=== PATIENT | male | born 1945 | race Caucasian/White ===

== ENCOUNTER 2016-04-18 12:54 | Inpatient (IN) | payer MEDICARE ==
[~2016-04-18] VITALS: Ht 177.8 cm; Wt 104.2 kg
[2016-04-18] MEDS ORDERED: KCL 20MEQ IN D5/NS 1000ML 1,000 ML IV SCH (12:59)
[2016-04-18] MEDS ORDERED: KETOROLAC 30 MG/ML VIAL (J1885) IV SCH (13:00)
[2016-04-18] MEDS ORDERED: LEVALBUTEROL 1.25 MG/0.5 ML CONCENTRATE NEB NEB PRN (13:00)
[2016-04-18] MEDS ORDERED: ACETAMINOPHEN TAB 650MG DOSE (2X325MG) PO PRN (13:00)
[2016-04-18] MEDS ORDERED: zolPIDEM TARTRATE 5 MG TAB PO PRN (13:00)
[2016-04-18] MEDS ORDERED: PERCOCET 5MG/325MG TAB PO PRN (13:00)
[2016-04-18] MEDS ORDERED: BISACODYL 10 MG SUPP PR PRN (13:00)
[2016-04-18] MEDS ORDERED: ONDANSETRON 4MG/2ML VIAL (J2405) IV PRN (13:00)
[2016-04-18] MEDS: LEVALBUTEROL 1.25 MG/0.5 ML CONCENTRATE NEB NEB SCH ×2 (14:00→20:00)
[2016-04-18] MEDS ORDERED: MORPHINE 10 MG/ML 1ML VIAL As Ordered ONE (15:09)
[2016-04-18] MEDS ORDERED: HYDROmorphone HCL 1 MG/ML SYRINGE (J1170) IV PRN (16:15)
[2016-04-18 16:25] VITALS: BP 183/104
[2016-04-18] MEDS ORDERED: NS 1,000 ML IV SCH (16:30)
[2016-04-18] MEDS ORDERED: PROP80CA PO (16:37)
[2016-04-18] MEDS ORDERED: LISI10TA4 PO (16:37)
[2016-04-18] MEDS ORDERED: FLOM5CAP PO (16:37)
[2016-04-18] MEDS ORDERED: ATOR40TA PO (16:37)
[2016-04-18] MEDS ORDERED: NEXI40CA PO (16:37)
[2016-04-18] MEDS ORDERED: PERC10TA17 PO (16:37)
[2016-04-18] MEDS ORDERED: LASI40TA PO (16:37)
[2016-04-18] MEDS: HYDROmorphone HCL 1 MG/ML SYRINGE (J1170) IV PRN ×2 (16:56→20:33)
[2016-04-18] MEDS: ceFAZolin SOD 1 GM in D5W MINI-BAG PLUS 50 ML IV SCH (17:54)
[2016-04-18] MEDS: PERCOCET 5MG/325MG TAB PO PRN ×2 (17:55→23:07)
[2016-04-18 18:22] LABS: INR 0.99
[2016-04-18 18:35] LABS: ALBUMIN 3.1 GM/DL (3.2-5.2); ALBUMIN/GLOBULIN RATIO 0.82 (1.00-1.93); ALKALINE PHOSPHATASE 145 U/L (45-117); ALT/SGPT 16 U/L (12-78); ANION GAP 11 MEQ/L (8-16); AST/SGOT 20 U/L (15-37); BILIRUBIN,TOTAL 0.9 MG/DL (0.2-1.0); BLOOD UREA NITROGEN 17 MG/DL (7-18); CALCIUM LEVEL 7.9 MG/DL (8.8-10.2); CARBON DIOXIDE LEVEL 24 MEQ/L (21-32); CHLORIDE LEVEL 104 MEQ/L (98-107); CHOLESTEROL LEVEL 136 MG/DL (<200); CREATININE FOR GFR 0.84 MG/DL (0.70-1.30); GLOMERULAR FILTRATION RATE > 60.0 (>42); GLUCOSE, FASTING 97 MG/DL (83-110); POTASSIUM SERUM 3.6 MEQ/L (3.5-5.1); SODIUM LEVEL 139 MEQ/L (136-145); TOTAL PROTEIN 6.9 GM/DL (6.4-8.2); TRIGLYCERIDES LEVEL 263 MG/DL (<150)
[2016-04-18 20:00] VITALS: O2SAT 96
--- NOTE | 2016-04-18 20:13 | CR ---
DATE: 04/18/2016 This is a patient from [facility]. CHIEF COMPLAINT: Chest pain. SUMMARY OF PRESENTATION: This is a 71-year-old who presented to [facility] today for a lung biopsy in interventional radiology. He developed chest pain after and was found to have a pneumothorax. Chest tube was placed by Dr. Lawton. He has continued to have left-sided chest pain associated with shortness of breath and has been pleuritic. I was asked to see the patient in consultation. Apparently, also sometime during his presentation he developed sudden onset left-sided weakness, which had resolved by the time I made it to the bedside. He had weakness in his left hand, left forearm, and left shoulder. 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 She noted no facial asymmetry or leg weakness at that time. The entire episode lasted 1-2 minutes at most. The patient has history of atrial fibrillation, for which he is not anticoagulated, and he has not been on aspirin for around a month, as he had a severe case of duodenitis, for which he was hospitalized at [facility]. PAST MEDICAL HISTORY: Notable for: 1. Anxiety. 2. Atrial fibrillation. 3. Autonomic dysfunction. 4. Angina. 5. Cardiovascular disease. 6. Chronic obstructive pulmonary disease (COPD). 7. Depression. 8. Hyperlipidemia. 9. Hypertension. 10. Orthostatic hypotension. 11. Renal stones. 12. Ruptured aortic aneurysm remotely. 13. Stage III chronic kidney disease. 14. Supraventricular tachycardia (SVT). 15. Urinary outflow obstruction. 16. 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 PAST SURGICAL HISTORY: Notable for: 1. Appendectomy. 2. Cardiac stents. 3. Cholecystectomy. 4. Eye surgery. 5. Abdominal aortic aneurysm (AAA) surgery. ALLERGIES: To DEMEROL, which is activating for him. MEDICATIONS: At home are listed as atorvastatin, Nexium, Lasix, lisinopril, Percocet, propranolol, and Flomax. Doses are currently being verified by the pharmacy intern. SOCIAL HISTORY: Patient is and retired. He smoked three packs a day for 48 years but does not smoke currently. Occasionally drinks. His daughter is at bedside. FAMILY HISTORY: Unremarkable due to advanced age. REVIEW OF SYSTEMS: Notable for no headache. No visual changes, although he has impaired vision in his left eye. No neck pain. No cough. He is not short of breath currently, although he does have episodes of shortness of breath during my exam. Abdominal pain. He has had black stools related to his duodenitis, which apparently here heme negative. He says that he had a history of seizures as a child; otherwise unremarkable. PHYSICAL EXAMINATION: He is awake, appropriately interactive, pleasantly conversant. Head is normocephalic. Sinuses are nontender. Left pupil is irregular. Moist mucous membranes. Neck supple. Breathing is symmetrically diminished. Inspiratory to expiratory (I-to-E) is 1:3. No accessory muscle use. He is speaking in sentences. Heart is in a regular rate and rhythm. Pulse is 2+ on the right and 3+ on the left at the radius. Abdomen soft, doughy, nontender. No lower extremity edema. Strength is symmetrical in the upper and lower extremities. Cranial nerves II-XII are grossly intact. He has normal mood and affect. EKG shows the patient to be in a normal sinus rhythm with an old right bundle branch block and nonspecific T-wave abnormalities. There are no labs available for me to review. ASSESSMENT: This is a 71-year-old with pneumothorax status post lung biopsy who developed left-sided weakness, who will be admitted for workup for transient ischemic attack (TIA), continue on monitoring, as well as neurologic checks. PLAN: 1. Neurologic. Suspicion for TIA is high given the fact that the patient has known atrial fibrillation and is currently anticoagulated. MRA/MRA of the brain are ordered, 2D echo, fasting lipid panel, and a neurology consult. Patient would likely benefit from anticoagulation, although it is unclear why he was not anticoagulated in the past. 2. Chest pain. Chest pain is most likely related to his pneumothorax and chest tube placement. Will cycle troponins and monitor on telemetry. 3. Cardiovascular. Patient has atrial fibrillation, known coronary artery disease, hypertension, hyperlipidemia. Will continue his home medications pending finding the actual doses. 4. Patient has chronic kidney disease, stage III. Would benefit from a CT angiogram should that be available; otherwise, we can do a V/Q scan tomorrow. The patient is being biopsied for suspected lung tumor. If he did, in fact, have that, it would give him increased risk of deep vein thrombosis (DVT) and possible pulmonary embolism (PE). 5. The patient has chronic obstructive pulmonary disease (COPD). He is not on home oxygen. He is slightly hypoxic at this point. He has no listed respiratory medications. 6. Patient has anxiety, which his daughter thinks is getting worse. Not be prescribing any medications for insomnia this evening. 7. Patient has healthcare proxy form at home. Will have to get a copy of that from the family as we are able. TERRY
[2016-04-18 20:20] VITALS: BP 158/81
[2016-04-18] MEDS: DOCUSATE SODIUM 100 MG CAP PO SCH (20:34)
[2016-04-18] MEDS: HEPARIN SOD (PORCINE) 5000 UNITS/ML VIAL SC SCH (20:34)
--- NOTE | 2016-04-18 21:06 | REP ---
MRI BRAIN WITHOUT CONTRAST: HISTORY: TIAs. Areas of increased signal intensity on T2-weighted images are present in the periventricular and subcortical white matter and jonathan. This represents small vessel ischemic disease. There is no intraparenchymal hemorrhage, infarct, mass or midline shift. The ventricular system and cortical sulci are dilated consistent with mild volume loss. There is no extracerebral collection. Mucosal thickening is present in the ethmoid, maxillary, sphenoid and left frontal sinuses, and right mastoid air cells. IMPRESSION: 1. Small vessel ischemic disease. 2. Mild volume loss. Signed by Jorge Luis Llanos MD 04/19/2016 08:03 A
[2016-04-18 21:10] LABS: BASO % 0.3 % (0.0-1.0); EOS # 0.2 K/mm3 (0.0-0.50); EOS % 1.6 % (0.0-3.0); LARGE UNSTAINED CELL # 0.2 K/mm3 (0.0-0.4); LARGE UNSTAINED CELL % 1.8 % (0.0-4.0); LYMPH # 1.9 K/mm3 (1.5-4.5); LYMPH % 19.2 % (24.0-44.0); MEAN CORPUSCULAR HEMOGLOBIN 34.8 pg (27.0-33.0); MEAN CORPUSCULAR HGB CONC 34.4 g/dl (32.0-36.5); MEAN CORPUSCULAR VOLUME 101.3 fl (80.0-96.0); MONO # 0.5 K/mm3 (0.0-0.8); MONO % 4.8 % (0.0-5.0); NEUTROPHILS # 7.2 K/mm3 (1.8-7.7); NEUTROPHILS % 72.3 % (36.0-66.0); PLATELET COUNT, AUTOMATED 251 k/mm3 (150-450); RED CELL DISTRIBUTION WIDTH 13.8 % (11.5-14.5)
[2016-04-19] VITALS (11 sets, daily range): BP systolic 139–168; BP diastolic 67–98; O2SAT 93–97
[2016-04-19] MEDS: ceFAZolin SOD 1 GM in D5W MINI-BAG PLUS 50 ML IV SCH ×3 (01:40→17:19)
[2016-04-19] MEDS: HYDROmorphone HCL 1 MG/ML SYRINGE (J1170) IV PRN ×2 (01:40→10:33)
[2016-04-19] MEDS: LEVALBUTEROL 1.25 MG/0.5 ML CONCENTRATE NEB NEB SCH ×4 (02:00→20:00)
[2016-04-19] MEDS: NORCO, ANEXSIA 5/325MG TABLET (HYDROcodone/ACETAMINOPHEN) PO PRN ×3 (02:53→21:29)
[2016-04-19 05:27] LABS: BASO % 0.4 % (0.0-1.0); EOS # 0.2 K/mm3 (0.0-0.50); EOS % 2.1 % (0.0-3.0); LARGE UNSTAINED CELL # 0.2 K/mm3 (0.0-0.4); LARGE UNSTAINED CELL % 2.1 % (0.0-4.0); LYMPH # 1.7 K/mm3 (1.5-4.5); LYMPH % 21.3 % (24.0-44.0); MEAN CORPUSCULAR HEMOGLOBIN 33.3 pg (27.0-33.0); MEAN CORPUSCULAR HGB CONC 32.7 g/dl (32.0-36.5); MEAN CORPUSCULAR VOLUME 101.8 fl (80.0-96.0); MONO # 0.5 K/mm3 (0.0-0.8); NEUTROPHILS # 5.3 K/mm3 (1.8-7.7); NEUTROPHILS % 68.1 % (36.0-66.0); PLATELET COUNT, AUTOMATED 228 k/mm3 (150-450); RED CELL DISTRIBUTION WIDTH 13.9 % (11.5-14.5); WHITE BLOOD COUNT 7.8 K/mm3 (4.0-10.0)
[2016-04-19 05:44] LABS: ANION GAP 6 MEQ/L (8-16); BLOOD UREA NITROGEN 15 MG/DL (7-18); CALCIUM LEVEL 8.6 MG/DL (8.8-10.2); CARBON DIOXIDE LEVEL 29 MEQ/L (21-32); CHLORIDE LEVEL 104 MEQ/L (98-107); CHOLESTEROL LEVEL 122 MG/DL (<200); CREATININE FOR GFR 1.01 MG/DL (0.70-1.30); GLOMERULAR FILTRATION RATE > 60.0 (>42); GLUCOSE, FASTING 111 MG/DL (83-110); POTASSIUM SERUM 3.6 MEQ/L (3.5-5.1); SODIUM LEVEL 139 MEQ/L (136-145); TRIGLYCERIDES LEVEL 238 MG/DL (<150)
[2016-04-19 05:58] LABS: ABG BASE EXCESS 0.3 (-2.0-2.0); ABG HCO3 24.8 MEQ/L (22.0-26.0); ABG PARTIAL PRESSURE CO2 39.5 mmHg (35.0-45.0); ABG PARTIAL PRESSURE O2 71.9 mmHg (75.0-100.0); ABG STANDARD HCO3 24.7 MEQ/L (22.0-26.0); ABG pH (ARTERIAL) 7.416 UNITS (7.350-7.450)
--- NOTE | 2016-04-19 07:46 | ECHO ---
DATE OF PROCEDURE: 04/18/2016 REFERRING PHYSICIAN: Dr. Emiliano Barrera. INDICATION: TIA. The patient measures 178 cm and weighs 106 kg. DIMENSIONS: IVS - 0.9 LV - 5.9 LVPW - 0.9 LA - 4.0 Aorta 3.7 FINDINGS: Study is somewhat limited on account of the patient's size and presence of left-sided chest tube. Left ventricle is borderline dilated but is overall normally contractile. I estimate EF around 60%. Due to limited visualization, subtle wall motion abnormalities cannot be ruled out. Left atrium is at least mildly enlarged. Right-sided heart chambers were poorly seen but grossly appear normal. There is mild aortic sclerosis but mobility of the valve is preserved. There is thickening of arterior mitral leaflet but mobility is preserved. Tricuspid and pulmonic valves were not well seen. No pericardial effusion is noted. Inferior vena cava is normal size aortic root is normal. Aortic arch and abdominal aorta were not visualized. Doppler interrogation reveals no aortic stenosis or insufficiency. There is also no significant mitral stenosis or insufficiency. Evaluation of right-sided valves was poor due to limited visualization. Mitral inflow pattern and tissue Doppler imaging of mitral annulus reveal grade 1 diastolic dysfunction. CONCLUSION: 1. Study is of fair technical quality. 2. Borderline dilated left ventricle with overall preserved systolic function and grade 1 diastolic dysfunction. 3. No hemodynamically significant mitral and aortic valve disease. 4. Right-sided chambers overall were poorly seen. 5. Normal central venous pressure. COMMENT: SBE prophylaxis is not recommended. MTDD
[2016-04-19] MEDS: MOM 30ML SUSPENSION UDC PO SCH (08:25)
[2016-04-19] MEDS: HEPARIN SOD (PORCINE) 5000 UNITS/ML VIAL SC SCH (08:25)
[2016-04-19] MEDS: DOCUSATE SODIUM 100 MG CAP PO SCH ×2 (08:25→21:28)
[2016-04-19] MEDS: ASPIRIN 81 MG ENTERIC TAB PO SCH (08:25)
[2016-04-19] MEDS: PANTOPRAZOLE 40MG TAB (PROTONIX) PO SCH (08:26)
[2016-04-19] MEDS: PANTOPRAZOLE 40MG INJ (PROTONIX) (C9113) IV SCH (08:26)
[2016-04-19] MEDS: PERCOCET 5MG/325MG TAB PO PRN ×3 (08:27→17:20)
[2016-04-19] MEDS ORDERED: POTASSIUM CHLORIDE 10 MEQ SR TABLET PO ONE (08:45)
[2016-04-19] MEDS ORDERED: ENOXAPARIN 100MG/1ML SYRINGE (J1650) SC SCH (09:00)
--- NOTE | 2016-04-19 09:04 | REP ---
Duplex carotid sonography: History: TIA. Findings: Antegrade flow is observed in both vertebral arteries. Right carotid: The right common carotid artery shows mild diffuse intimal thickening. There is mild mixed plaquing circumferentially in the bulb, proximal ICA and proximal ECA. Color flow and spectral Doppler interrogation are unremarkable on the right. Velocity chart right carotid: CCA PSV 69 cm/s ICA PSV 101 ANNEMARIE 26 ECA PSV 102 ICA/CCA ratio normal 1.5. Impression: 16-49% category narrowing in the right ICA by Doppler velocity criteria. Probably near the upper end of this range. Left carotid: The left common carotid artery shows diffuse intimal thickening and some mild plaquing. There is mixed plaquing in the bulb, proximal ICA and proximal ECA. Color flow and spectral Doppler interrogation show mildly elevated systolic velocity in the left ICA. Velocity chart left carotid: CCA PSV 70 cm/s ICA PSV 141 ANNEMARIE 53 ECA PSV 55 ICA/CCA ratio elevated 2.0. Impression: 50-79% category narrowing in the left ICA by Doppler velocity criteria. Signed by Mumtaz Loyola MD 04/19/2016 02:46 P
[2016-04-19] MEDS: PROPRANOLOL 80 MG LA CAP PO SCH (09:54)
[2016-04-19] MEDS: LISINOPRIL 10 MG TAB PO SCH (09:55)
--- NOTE | 2016-04-19 10:13 | REP ---
CHEST, TWO VIEWS: Two views of the chest are performed. Comparison made with prior study of 04/18/2016. There is again a single left chest tube with the side port overlying the left apical region. There is mild biapical pleural thickening bilaterally. There is patchy parenchymal opacity in the left lung base which is unchanged. Cardiomediastinal silhouette is unchanged. There is no pneumothorax. IMPRESSION: Stable exam. Signed by Maury Stoner MD 04/19/2016 05:20 P
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
--- NOTE | 2016-04-19 11:22 | ECGEPIP ---
Stationary ECG Study [facility] Test Date: 2016-04-19 Pat Name: GARIMA WIGGINS Department: Room: - Gender: M Venereal Disease Control Head: : 1945 Requested By: EMILIANO Bourgeois Order Number: [id number] Reading MD: Emiliano Barrera Measurements Intervals [place] Rate: 84 P: 31 GA: 268 QRS: 73 QRSD: 141 T: 30 QT: 417 QTc: 496 Interpretive Statements SINUS RHYTHM WITH FIRST DEGREE AV BLOCK WITH OCCASIONAL VENTRICULAR PREMATURE COMPLEXES Prolonged QTc Right bundle branch block Nonspecific T wave abnormality Compared to prior tracing of 04-18-16 Electronically Signed On 04-19-2016 11:22:39 EST by Emiliano Barrera
--- NOTE | 2016-04-19 12:29 | REP ---
MRA CAROTIDS WITHOUT CONTRAST: HISTORY: TIAs. Unenhanced 2D [id number] MR angiography was performed at the level of the carotid bifurcations. The examination is very limited secondary to motion. There is at least moderate stenosis of 55% of the right internal carotid artery at its origin. There is at least __moderate ___ stenosis of 50% of the right external carotid artery at its origin. There is at least moderate stenosis of 60% of the left internal carotid artery at its origin. There is at least moderate stenosis of 35% of the left external carotid artery at its origin. The vertebral arteries are patent. The left vertebral artery is dominant. IMPRESSION: Limited study demonstrating at least moderate stenosis of 55% of the right internal carotid artery at its origin and moderate stenosis of 60% of the left internal carotid artery at its origin. Signed by Jorge Luis Llanos MD 04/19/2016 12:32 P
--- NOTE | 2016-04-19 12:29 | RO ---
DATE OF PROCEDURE: 04/18/2016 PREPROCEDURE DIAGNOSIS: Left pneumothorax expanding. POSTPROCEDURE DIAGNOSIS: Left pneumothorax expanding. PROCEDURE: Insertion of left anterior chest tube. SURGEON: Dr. Jean Claude Lawton LEAN LEADER: ANESTHESIA: DESCRIPTION OF PROCEDURE: Under satisfactory moderate sedation, with 4 mg of Versed, the patient was prepped and draped in the usual sterile fashion. Blood pressure remained constant in the 150 to 160 systolic range. The incision was made and tunnel was created in the chest over the second rib into the first intercostal space. A #20 chest tube was placed without difficulty and was secured to the chest wall with a #2 Tevdek suture. The chest tube was connected to the Pleur-evac. The patient tolerated the procedure well and a chest x-ray is pending.
--- NOTE | 2016-04-19 13:42 | REP ---
V/Q SCAN: Following the intravenous administration of 5.4 millicuries technetium 99m tagged MAA and the inhalation of 1.0 millicuries technetium 99m DTPA aerosol, multiple images of the lungs are obtained in various projections. There is central deposition of radiotracer in the airways on the ventilation portion of the scan with relatively poor ventilation more peripherally. This limits the study. There is a prominent cardiomediastinal silhouette. A few nonspecific subsegmental perfusion defects are seen in the right upper lobe with more extensive ventilation defects in this region. Perfusion defects are seen in both costophrenic sulci posteriorly with much larger ventilation defects. IMPRESSION: Intermediate probability of pulmonary embolism. Signed by Maury Stoner MD 04/19/2016 05:23 P
--- NOTE | 2016-04-19 14:14 | IPN ---
DATE: 04/19/2016 Mr. Marx has had an uneventful 24 hours. There has been no repeat of the left sided weakness. He has no air leak in his chest tube and his pain is being fairly well controlled with oral pain medications. His vital signs show a T-max of 97.5 with a heart rate that ranges between 82 and 106 in atrial fibrillation, and respiratory rate of 17-20 without the use of accessory muscles, who is 95-94% saturated on 2 liters nasal cannula. His blood pressure is ranging between 150/70 to 168/88. His intake and output the past 24 hours has been recorded as 660 in and 500 out for a positivity of 160 mL. He has put out nothing from the chest tube and there is no air leak as noted above. Weight today is 103.9 kg compared to 106 kg yesterday. PHYSICAL EXAMINATION: LUNGS: Show equal breath sounds on either side. Percussion notes are full to the diaphragm. There are no wheezes, rhonchi or ales. CARDIAC: Exam is without murmurs, clicks, gallops or rubs. I cannot feel his PMI. S1 and S2 are normal. ABDOMEN: Soft, nontender. Bowel sounds are positive. There is no hepatomegaly. No CVA tenderness. EXTREMITIES: Show no pretibial edema. No calf tenderness. No differential swelling of the upper extremities. SKIN: Warm, dry and perfused without cyanosis or mottling including that of the nail beds and knees. NECK: Supple. There is no jugular venous distention (JVD). No subcutaneous emphysema. Trachea is midline. MOUTH: Shows his mucous membranes to be pink and moist. Lips and commissures without lesions. There is no thrush. EYES: Show is pupils to be equal and reactive. Extraocular motors intact. Sclera nonicteric. NEURO: Shows II through XII intact along with gross motor and gross sensation intact. Gait is not tested. PSYCHIATRIC: Shows him to be awake and alert, oriented times three with appropriate mood and affect, and conversational. His white count today is 7.8 with a hemoglobin and hematocrit of 10.0 and 30.6, essentially unchanged from yesterday with a platelet count of 228. Differential shows 66% neutrophils, 21% lymphocytes, 6% monocytes. There are no immature forms. No toxic granulations. His electrolytes are normal with a BUN and creatinine of 15 and 1.0. Glucose is 111 with a calcium of 8.6 and a corresponding albumin of 3.1 yesterday. All his troponins are negative. Chest x-ray shows his lung fully expanded to the chest wall. There is no pneumothorax and there is no subcutaneous emphysema. Chest tube is in good place. Brain MRI does not show any acute changes. Yesterday it was done without contrast. His carotid studies done this morning shows moderate stenosis, 55% of the right internal carotid artery and also 60% left carotid artery. A ventilation perfusion scan was undertaken which shows intermediate probability of pulmonary embolism. IMPRESSION: 1. Iatrogenic pneumothorax. 2. Probable clinical transient ischemic attack (TIA), no evidence of permanent structural damage. 3. Atrial fibrillation. 4. Coronary artery disease. 5. Chronic obstructive pulmonary disease (COPD). 6. Peripheral vascular disease. 7. Hyperlipidemia. 8. Hyperlipidemia. 9. Hypertension. 10. History of renal stones. 11. Benign prostatic hypertrophy (BPH). PLAN AND DISCUSSION: I will discontinue his chest tube suction today. If all goes well and his lung remains expanded to the chest wall, I will discontinue the chest tube tomorrow. I have again noted that I think that he should be fully anticoagulated.
[2016-04-19] MEDS ORDERED: ELIQ5TAB PO (17:40)
--- NOTE | 2016-04-19 18:52 | IPNPDOC ---
Subjective Date Seen The patient was seen on 04/19/16. Subjective Chief Complaint/HPI The patient is a 71-year-old male admitted with a reason for visit of Pneumothorax. Events since last encounter reported left sided chest pain, denied sob, abd pain, no acute events overnight. poor historian General: Denies: Chills, Fatigue Constitutional: Denies: Chills, Fever Eyes: Denies: Pain, Vision change ENT: Denies: Ear Pain, Head Aches Skin: Denies: Lesions, Rash Pulmonary: Reports: Cough, Denies: Dyspnea Cardiovascular: Reports: Chest Pain, Denies: Palpitations Gastrointestinal: Denies: Abdominal Pain, Nausea, Vomiting Genitourinary: Denies: Dysuria Objective Physical Examination General Exam: Positive: Alert, Cooperative, Negative: No Acute Distress Eye Exam: Positive: PERRLA ENT Exam: Positive: Atraumatic, Mucous membr. moist/pink Neck Exam: Positive: Supple Chest Exam: Positive: Clear to auscultation, Normal air movement Heart Exam: Positive: Normal S1, Normal S2, Rate Normal Abdomen Exam: Positive: Normal bowel sounds, Soft, Negative: Tenderness Extremity Exam: Negative: Clubbing, Cyanosis, Edema Assessment /Plan Problems (1) Chest pain Status: Acute Problem Text: likley pleuritic due to biopsy and chest tube tele, enzymes neg, ekg VQ scan intermediate on AC (2) Lung mass Status: Acute Problem Text: s/p biopsy, f/u path (3) COPD (chronic obstructive pulmonary disease) Status: Chronic Problem Text: stable c/w med (4) CAD (coronary artery disease) Status: Chronic Problem Text: asa, statin , acei, bb tele cex3 neg (5) TIA (transient ischemic attack) Status: Acute Problem Text: tele tte, MRI/MRA, carotid asa, statin, eliquis foe a fib (6) HTN (hypertension) Status: Chronic Problem Text: acei and BB monitor BP (7) HLD (hyperlipidemia) Status: Chronic Problem Text: statin (8) Afib Status: Chronic Problem Text: given TIA , D/w neuro/ PMD/ family, need AC, given poor compliance and difficult blood draw will attempt Eliquis PFS for possible prior authorization tele (9) BPH (benign prostatic hyperplasia) Status: Chronic Problem Text: c/w med (10) Pneumothorax Status: Acute Problem Text: s/p chest tube, manage as per Dr Lawton (11) CKD (chronic kidney disease) Status: Chronic Response to Treatment: Stable Plan/VTE VTE Prophylaxis Ordered?: Yes (eliquis) Disposition PT, chest tube removal, PFS for eliquis VS, I&O, 24H, Fishbone Vital Signs/I&O Vital Signs Date Time Temp Pulse Resp B/P Pulse Ox O2 Delivery O2 Flow Rate FiO2 04/19/16 17:50 17 04/19/16 16:00 97.0 88 140/88 96 Nasal Cannula 2.0 04/19/16 02:53 95 I&O- Last 24 Hours up to 6 AM 04/19/16 06:00 Intake Total 950 ml Output Total 510 ml Balance 440 ml Laboratory Data 24H LABS Laboratory Tests 2 04/18/16 20:49: B-Type Natriuretic Peptide 155H, White Blood Count 10.0, Red Blood Count 3.11L, Hemoglobin 10.8L, Hematocrit 31.5L, Mean Corpuscular Volume 101.3H, Mean Corpuscular Hemoglobin 34.8H, Mean Corpuscular Hemoglobin Concent 34.4, Red Cell Distribution Width 13.8, Platelet Count 251, Neutrophils (%) (Auto) 72.3H, Lymphocytes (%) (Auto) 19.2L, Monocytes (%) (Auto) 4.8, Eosinophils (%) (Auto) 1.6, Basophils (%) (Auto) 0.3, Neutrophils # (Auto) 7.2, Lymphocytes # (Auto) 1.9, Monocytes # (Auto) 0.5, Eosinophils # (Auto) 0.2, Basophils # (Auto) 0.0, Creatine Kinase MB 1.4, Creatine Kinase MB Relative Index 2.00, Large Unclassified Cells # 0.2, Large Unclassified Cells % 1.8, Total Creatine Kinase 70, Troponin I < 0.02 04/19/16 05:07: White Blood Count 7.8, Red Blood Count 3.01L, Hemoglobin 10.0L, Hematocrit 30.6L , Mean Corpuscular Volume 101.8H, Mean Corpuscular Hemoglobin 33.3H, Mean Corpuscular Hemoglobin Concent 32.7, Red Cell Distribution Width 13.9, Platelet Count 228, Neutrophils (%) (Auto) 68.1H, Lymphocytes (%) (Auto) 21.3L, Monocytes (%) (Auto) 6.0H, Eosinophils (%) (Auto) 2.1, Basophils (%) (Auto) 0.4 , Neutrophils # (Auto) 5.3, Lymphocytes # (Auto) 1.7, Monocytes # (Auto) 0.5, Eosinophils # (Auto) 0.2, Basophils # (Auto) 0.0, Creatine Kinase MB 1.1, Creatine Kinase MB Relative Index 1.64, Large Unclassified Cells # 0.2, Large Unclassified Cells % 2.1, Total Creatine Kinase 67, Troponin I < 0.02, Anion Gap 6L, Calcium Level 8.6L, Triglycerides Level 238H, Cholesterol Level 122, HDL Cholesterol 27L, LDL Cholesterol 47.4, Cholesterol/HDL Ratio 4.518, Glomerular Filtration Rate > 60.0, Non-HDL Cholesterol (LDL + VLDL) 95 04/19/16 05:48: Arterial Blood pH 7.416, Arterial Blood Partial Pressure CO2 39.5, Arterial Blood Partial Pressure O2 71.9L, Arterial Blood Total CO2 26.0, Arterial Blood HCO3 24.8, Arterial Blood Base Excess 0.3, Arterial Blood Oxygen Saturation 93.9L, Blood Gas Bicarbonate Standard 24.7 CBC/BMP Laboratory Tests 04/18/16 20:49 Red Blood Count 3.11 L, Mean Corpuscular Volume 101.3 H, Mean Corpuscular Hemoglobin 34.8 H, Mean Corpuscular Hemoglobin Concent 34.4, Red Cell Distribution Width 13.8, Neutrophils (%) (Auto) 72.3 H, Lymphocytes (%) (Auto) 19.2 L, Monocytes (%) (Auto) 4.8, Eosinophils (%) (Auto) 1.6, Basophils (%) ( Auto) 0.3, Neutrophils # (Auto) 7.2, Lymphocytes # (Auto) 1.9, Monocytes # (Auto ) 0.5, Eosinophils # (Auto) 0.2, Basophils # (Auto) 0.0 04/19/16 05:07 Red Blood Count 3.01 L, Mean Corpuscular Volume 101.8 H, Mean Corpuscular Hemoglobin 33.3 H, Mean Corpuscular Hemoglobin Concent 32.7, Red Cell Distribution Width 13.9, Neutrophils (%) (Auto) 68.1 H, Lymphocytes (%) (Auto) 21.3 L, Monocytes (%) (Auto) 6.0 H, Eosinophils (%) (Auto) 2.1, Basophils (%) ( Auto) 0.4, Neutrophils # (Auto) 5.3, Lymphocytes # (Auto) 1.7, Monocytes # (Auto ) 0.5, Eosinophils # (Auto) 0.2, Basophils # (Auto) 0.0 ISAIAS GAMBOA MD Apr 19, 2016 18:51
[2016-04-19] MEDS: ATORVASTATIN 20 MG TAB PO SCH (21:28)
[2016-04-19] MEDS: TAMSULOSIN 0.4 MG CAP PO SCH (21:28)
[2016-04-20] VITALS (14 sets, daily range): BP systolic 128–186; BP diastolic 62–90; O2SAT 83–95
[2016-04-20] MEDS: ceFAZolin SOD 1 GM in D5W MINI-BAG PLUS 50 ML IV SCH ×3 (01:06→10:00)
[2016-04-20] MEDS: LEVALBUTEROL 1.25 MG/0.5 ML CONCENTRATE NEB NEB SCH ×4 (01:48→21:10)
[2016-04-20 05:40] LABS: ANION GAP 7 MEQ/L (8-16); BLOOD UREA NITROGEN 15 MG/DL (7-18); CALCIUM LEVEL 8.3 MG/DL (8.8-10.2); CARBON DIOXIDE LEVEL 27 MEQ/L (21-32); CHLORIDE LEVEL 105 MEQ/L (98-107); CREATININE FOR GFR 0.93 MG/DL (0.70-1.30); GLOMERULAR FILTRATION RATE > 60.0 (>42); GLUCOSE, FASTING 119 MG/DL (83-110); MAGNESIUM LEVEL 2.5 MG/DL (1.8-2.4); POTASSIUM SERUM 4.4 MEQ/L (3.5-5.1); SODIUM LEVEL 139 MEQ/L (136-145)
[2016-04-20 05:48] LABS: INR 0.98
[2016-04-20 05:51] LABS: BASO % 0.4 % (0.0-1.0); EOS # 0.1 K/mm3 (0.0-0.50); EOS % 1.9 % (0.0-3.0); LARGE UNSTAINED CELL # 0.2 K/mm3 (0.0-0.4); LARGE UNSTAINED CELL % 2.1 % (0.0-4.0); LYMPH # 1.4 K/mm3 (1.5-4.5); LYMPH % 19.9 % (24.0-44.0); MEAN CORPUSCULAR HEMOGLOBIN 34.3 pg (27.0-33.0); MEAN CORPUSCULAR HGB CONC 33.5 g/dl (32.0-36.5); MEAN CORPUSCULAR VOLUME 102.3 fl (80.0-96.0); MONO # 0.4 K/mm3 (0.0-0.8); MONO % 5.8 % (0.0-5.0); NEUTROPHILS # 4.9 K/mm3 (1.8-7.7); PLATELET COUNT, AUTOMATED 208 k/mm3 (150-450); RED CELL DISTRIBUTION WIDTH 13.8 % (11.5-14.5)
--- NOTE | 2016-04-20 08:12 | CR ---
DATE OF CONSULTATION: 04/19/2016 REASON FOR CONSULTATION: Is possible transient ischemic attack (TIA). HISTORY OF PRESENTING ILLNESS: Patient is a 71-year-old, right-handed male with past medical history significant for history of chronic obstructive pulmonary disease (COPD), history of myocardial infarction, hypertension, hyperlipidemia, and atrial fibrillation. The patient was having an elective procedure due to a persistent lung nodule and underwent a biopsy that was complicated by pneumothorax and placement of chest tube. The patient suddenly developed left upper extremity weakness. He is unsure of any leg involvement as he did not even think to try to move his leg. The symptoms lasted approximately 1 minute and then resolved spontaneously on their own. Denied any change in speech, facial weakness, dysarthria or numbness throughout the body. The patient states he is at his baseline state right now. He has some mild chest discomfort near his chest tube site. PAST MEDICAL HISTORY: 1. Atrial fibrillation. 2. Hypertension. 3. Hyperlipidemia. 4. Gastroesophageal reflux disease. 5. COPD. 6. Myocardial infarction 2012. PAST SURGICAL HISTORY: 1. Cataract surgery. 2. Cholecystectomy. 3. Appendectomy. 4. 4 to 5 cardiac stents. FAMILY HISTORY: Noncontributory. SOCIAL HISTORY: The patient quit tobacco 8 years ago. Quit alcohol 10 years ago. Does not use any illicit drugs. ALLERGIES: MEPERIDINE, MORPHINE. MEDICATIONS: - heparin 5000 subcutaneous every 12 hour - cephazolin 1 gram by mouth every 8 hour - Dilaudid as needed - [place] as needed - Zofran as needed - Percocet as needed - Ambien 5 mg by mouth nightly as needed The patient quit aspirin 2 weeks ago due to possible ulcer in the intestines. REVIEW OF SYSTEMS: 14-point review of systems obtained and is negative except as per HPI. PHYSICAL EXAMINATION: Blood pressure 183/104, pulse rate 89, respiratory rate is 20, oxygenation 95% on 2 liters nasal cannula, 97.9 degrees Fahrenheit. The patient is alert, oriented to person, place and time. Speech, language, comprehension and repetition are intact. Pupils are 3 mm round, reactive to light. Extraocular movements are intact in all directions. Sensation V1, V2-V3 is intact to light touch. No facial asymmetry on activation. Palate elevates symmetrically. Tongue is midline. No weakness of sternocleidomastoids bilaterally. No pronator drift. Strength is 5/5, including bilateral deltoids, biceps, triceps, handgrip, iliopsoas, anterior tibialis. Deep tendon reflexes are 2s throughout. Babinski signs are negative. Coordination: Normal [id number] without any signs of ataxia or dysmetria. No pronator drift. Sensory is intact to light touch in all four extremities. ASSESSMENT: Probable transient ischemic attack with transient left upper extremity hemiparesis in setting of the patient being off of anticoagulant, history of atrial fibrillation and aspirin last being used 2 weeks ago. PLAN: Obtain MRI brain, MR angiogram of the head, carotid ultrasound. Continue telemetry monitoring. Echocardiogram. Resume anticoagulation and aspirin if medically safe considering patient recently underwent chest tube placement. The patient can be followed up in the [facility] Neurology office a few weeks upon discharge.
[2016-04-20] MEDS ORDERED: PREVNAR 13 VACCINE SYRINGE (CPT CODE:90670) IM ONE (09:00)
[2016-04-20] MEDS: MOM 30ML SUSPENSION UDC PO SCH (09:08)
[2016-04-20] MEDS: LISINOPRIL 10 MG TAB PO SCH (09:09)
[2016-04-20] MEDS: ASPIRIN 81 MG ENTERIC TAB PO SCH (09:09)
[2016-04-20] MEDS: DOCUSATE SODIUM 100 MG CAP PO SCH ×2 (09:09→20:34)
[2016-04-20] MEDS: APIXABAN 5 MG TAB (ELIQUIS) PO SCH ×2 (09:09→20:33)
[2016-04-20] MEDS: PROPRANOLOL 80 MG LA CAP PO SCH (09:09)
[2016-04-20] MEDS: PERCOCET 5MG/325MG TAB PO PRN ×2 (09:10→23:38)
[2016-04-20] MEDS: PANTOPRAZOLE 40MG INJ (PROTONIX) (C9113) IV SCH (09:10)
--- NOTE | 2016-04-20 09:18 | REP ---
TWO-VIEW CHEST: Two views of the chest are performed and compared to a prior study of 04/19/2016. Left chest tube remains in place, unchanged on position. There is no pneumothorax. There is again elevation of the right hemidiaphragm. Biapical pleural thickening is again noted. Interstitial opacities bilaterally are stable. There is again opacity in the posterior costophrenic sulci unchanged. The cardiomediastinal silhouette is unchanged. IMPRESSION: Stable exam. Signed by Maury Stoner MD 04/20/2016 03:52 P
[2016-04-20] MEDS ORDERED: MIRALAX *UNIT DOSE* 17GM PACKET PO ONE ×2 (11:15→14:45)
--- NOTE | 2016-04-20 14:30 | IPN ---
DATE: 04/20/2016 Mr. Marx again has not had any recurrence of his left-sided weakness. He is breathing well. His chest tube has no air leak and his lung is fully expanded to the chest wall on his chest x-ray. His vital signs show a T-max of 96.8 with a heart rate that ranges between 80 and 86 in atrial fibrillation with a respiratory rate of 18 to 20 without the use of accessory muscles, who is 92% saturated in room air and whose blood pressures range between 186/90 to 176/62. His intake and output over the past 24 hours has been recorded as 6090 in and 1135 out for a positivity of 555 mL. He weighed 140 kilograms today compared to a 103.9 kilograms yesterday. He has put out 10 mL out of the chest tube and as noted above, there is no air leak. On physical examination his lungs show equal breath sounds on either side. Percussion note is full to the diaphragm. Cardiac exam is without murmurs, clicks, gallops or rubs. I cannot feel his point of maximum impulse (PMI). S1 and S2 are normal. Abdomen is soft and nontender. Bowel sounds are positive. There is no hepatomegaly. No CVA tenderness. Extremities show no pretibial edema with no calf tenderness. No differential swelling of the upper extremities. Skin is warm, dry and perfused without cyanosis or mottling including that of the nail beds and knees. Neck is supple. There is no jugular venous distention. No subcutaneous emphysema. Trachea is midline. Mouth shows his mucous membranes to be pink and moist. Lips and commissures are without lesions. There is no thrush. Eyes show his pupils to be equal and reactive. Extraocular movements intact. Sclerae nonicteric. Neurologic shows II-XII intact along with gross motor and gross sensation intact. Gait is not tested. Psychiatric showed him to be awake, alert and oriented times three with appropriate and affect and conversational. His white count today is 7.0 with a hemoglobin and hematocrit of 10.9 and 32.5 improved over 10.0 and 30.6 yesterday. Platelet count is 208 and stable and differential shows 70% neutrophils 90% lymphocytes, 5% monocytes. There are no immature forms or toxic granulations. His electrolytes are normal with a BUN and creatinine of 15 and 0.93 and a calcium of 8.3 and a glucose of 119. Magnesium is 2.5. There are no blood gases on him today. His PT/INR are 13.1 and 0.98. His chest x-ray shows his lungs fully expanded to the chest wall. There is no subcutaneous emphysema. Lateral chest x-ray shows no infiltrates. There may be a small pleural effusion posteriorly in the left costophrenic angle, although that is really unclear. He is currently on Eliquis for his anticoagulation. IMPRESSION: 1. Iatrogenic pneumothorax. 2. Probable clinical transient ischemic attack. No evidence of permanent structural damage. 3. Atrial fibrillation. 4. Coronary artery disease. 5. COPD. 6. Peripheral vascular disease. 7. Hyperlipidemia. 8. Hypertension. 9. History of renal stones. 10. Benign prostatic hypertrophy. PLAN AND DISCUSSION: I will remove his chest tube today. 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 I plan to send to him home tomorrow. Will need to discuss his next therapeutic options.
[2016-04-20] MEDS: SENOKOT S TAB PO SCH ×2 (14:34→20:34)
[2016-04-20] MEDS ORDERED: WARFARIN SOD 5 MG TAB PO SCH (17:00)
[2016-04-20] MEDS: ATORVASTATIN 20 MG TAB PO SCH (20:32)
[2016-04-20] MEDS: TAMSULOSIN 0.4 MG CAP PO SCH (20:33)
--- NOTE | 2016-04-20 20:46 | IPNPDOC ---
Subjective Date Seen The patient was seen on 04/20/16. Subjective Chief Complaint/HPI The patient is a 71-year-old male admitted with a reason for visit of Pneumothorax. Events since last encounter No acute events overnight, reported cp resolving, Denied SOB/ABD pain/v/n/f/c Objective Physical Examination General Exam: Positive: Alert, Cooperative, Negative: No Acute Distress Eye Exam: Positive: PERRLA ENT Exam: Positive: Atraumatic, Mucous membr. moist/pink Neck Exam: Positive: Supple Chest Exam: Positive: Clear to auscultation, Normal air movement, Other (chest tube) Heart Exam: Positive: Normal S1, Normal S2, Rate Normal Abdomen Exam: Positive: Normal bowel sounds, Soft, Negative: Tenderness Extremity Exam: Negative: Clubbing, Cyanosis, Edema Assessment /Plan Problems (1) Chest pain Status: Acute Problem Text: likley pleuritic due to biopsy and chest tube tele, enzymes neg, ekg VQ scan intermediate on AC (2) Lung mass Status: Acute Problem Text: biopsy showed squamous cell lung cancer f/u Dr Lawton rec, outpatient PET cancer navigation outpatient onco (3) COPD (chronic obstructive pulmonary disease) Status: Chronic Problem Text: stable c/w med (4) CAD (coronary artery disease) Status: Chronic Problem Text: asa, statin , acei, bb tele cex3 neg (5) TIA (transient ischemic attack) Status: Acute Problem Text: tele tte, MRI/MRA, carotid asa, statin, eliquis for a fib (6) HTN (hypertension) Status: Chronic Problem Text: acei and BB monitor BP (7) HLD (hyperlipidemia) Status: Chronic Problem Text: statin (8) Afib Status: Chronic Problem Text: given TIA , D/w neuro/ PMD/ family, need AC, given poor compliance and difficult blood draw will attempt Eliquis PFS for possible prior authorization tele (9) BPH (benign prostatic hyperplasia) Status: Chronic Problem Text: c/w med (10) Pneumothorax Status: Acute Problem Text: s/p chest tube, manage as per Dr Lawton removed chest tube f/u Dr Lawton monitor overnight (11) CKD (chronic kidney disease) Status: Chronic Response to Treatment: Stable (12) Squamous cell lung cancer Status: Acute Problem Text: see above Plan/VTE VTE Prophylaxis Ordered?: Yes (eliquis) Disposition PT, monitor improvement, likely DC tomorrow VS, I&O, [facility] Vital Signs/I&O Vital Signs Date Time Temp Pulse Resp B/P Pulse Ox O2 Delivery O2 Flow Rate FiO2 04/20/16 19:45 96.3 83 20 147/68 93 Nasal Cannula 2.0 04/19/16 02:53 95 I&O- Last 24 Hours up to 6 AM 04/20/16 06:00 Intake Total 1520 ml Output Total 1325 ml Balance 195 ml Laboratory Data 24H LABS Laboratory Tests 2 04/20/16 05:13: Anion Gap 7L, White Blood Count 7.0, Red Blood Count 3.18L, Hemoglobin 10.9L, Hematocrit 32.5L, Mean Corpuscular Volume 102.3H, Mean Corpuscular Hemoglobin 34.3H, Mean Corpuscular Hemoglobin Concent 33.5, Red Cell Distribution Width 13.8, Platelet Count 208, Neutrophils (%) (Auto) 70.0H, Lymphocytes (%) (Auto) 19.9L, Monocytes (%) (Auto) 5.8H, Eosinophils (%) (Auto) 1.9, Basophils (%) ( Auto) 0.4, Neutrophils # (Auto) 4.9, Lymphocytes # (Auto) 1.4L, Monocytes # ( Auto) 0.4, Eosinophils # (Auto) 0.1, Basophils # (Auto) 0.0, Blood Urea Nitrogen 15, Creatinine 0.93, Sodium Level 139, Potassium Level 4.4#, Chloride Level 105, Carbon Dioxide Level 27, Calcium Level 8.3L, Glomerular Filtration Rate > 60.0, Large Unclassified Cells # 0.2, Large Unclassified Cells % 2.1, Magnesium Level 2.5H, Prothromb Time International Ratio 0.98, Prothrombin Time 13.1 CBC/BMP Laboratory Tests 04/20/16 05:13 Calcium Level 8.3 L, Red Blood Count 3.18 L, Mean Corpuscular Volume 102.3 H, Mean Corpuscular Hemoglobin 34.3 H, Mean Corpuscular Hemoglobin Concent 33.5, Red Cell Distribution Width 13.8, Neutrophils (%) (Auto) 70.0 H, Lymphocytes (% ) (Auto) 19.9 L, Monocytes (%) (Auto) 5.8 H, Eosinophils (%) (Auto) 1.9, Basophils (%) (Auto) 0.4, Neutrophils # (Auto) 4.9, Lymphocytes # (Auto) 1.4 L, Monocytes # (Auto) 0.4, Eosinophils # (Auto) 0.1, Basophils # (Auto) 0.0 ISAIAS GAMBOA MD Apr 20, 2016 20:46
[2016-04-21] VITALS (7 sets, daily range): BP systolic 123–154; BP diastolic 57–98; O2SAT 93
[2016-04-21] MEDS: LEVALBUTEROL 1.25 MG/0.5 ML CONCENTRATE NEB NEB SCH ×3 (01:23→13:00)
[2016-04-21] MEDS: PERCOCET 5MG/325MG TAB PO PRN (04:19)
[2016-04-21 05:36] LABS: BASO % 0.5 % (0.0-1.0); EOS # 0.2 K/mm3 (0.0-0.50); EOS % 3.1 % (0.0-3.0); LARGE UNSTAINED CELL # 0.2 K/mm3 (0.0-0.4); LARGE UNSTAINED CELL % 2.9 % (0.0-4.0); LYMPH # 1.6 K/mm3 (1.5-4.5); MEAN CORPUSCULAR HEMOGLOBIN 33.6 pg (27.0-33.0); MEAN CORPUSCULAR HGB CONC 32.7 g/dl (32.0-36.5); MEAN CORPUSCULAR VOLUME 102.6 fl (80.0-96.0); MONO # 0.4 K/mm3 (0.0-0.8); MONO % 5.8 % (0.0-5.0); NEUTROPHILS # 3.8 K/mm3 (1.8-7.7); NEUTROPHILS % 61.7 % (36.0-66.0); PLATELET COUNT, AUTOMATED 234 k/mm3 (150-450); WHITE BLOOD COUNT 6.1 K/mm3 (4.0-10.0)
[2016-04-21 05:41] LABS: INR 1.11
[2016-04-21 05:45] LABS: ANION GAP 9 MEQ/L (8-16); BLOOD UREA NITROGEN 16 MG/DL (7-18); CALCIUM LEVEL 8.2 MG/DL (8.8-10.2); CARBON DIOXIDE LEVEL 25 MEQ/L (21-32); CHLORIDE LEVEL 106 MEQ/L (98-107); CREATININE FOR GFR 1.01 MG/DL (0.70-1.30); GLOMERULAR FILTRATION RATE > 60.0 (>42); GLUCOSE, FASTING 116 MG/DL (83-110); MAGNESIUM LEVEL 2.7 MG/DL (1.8-2.4); POTASSIUM SERUM 3.9 MEQ/L (3.5-5.1); SODIUM LEVEL 140 MEQ/L (136-145)
[2016-04-21] MEDS: DOCUSATE SODIUM 100 MG CAP PO SCH (09:00)
[2016-04-21] MEDS: SENOKOT S TAB PO SCH (09:00)
[2016-04-21] MEDS: MOM 30ML SUSPENSION UDC PO SCH (09:00)
[2016-04-21] MEDS: ASPIRIN 81 MG ENTERIC TAB PO SCH (09:33)
[2016-04-21] MEDS: LISINOPRIL 10 MG TAB PO SCH (09:33)
[2016-04-21] MEDS: PROPRANOLOL 80 MG LA CAP PO SCH (09:33)
[2016-04-21] MEDS: PANTOPRAZOLE 40MG TAB (PROTONIX) PO SCH (09:33)
[2016-04-21] MEDS: APIXABAN 5 MG TAB (ELIQUIS) PO SCH (09:35)
[2016-04-21] MEDS ORDERED: ASPI81TAEC PO (10:22)
[2016-04-21] MEDS ORDERED: SENN1TAB2 PO (10:22)
--- NOTE | 2016-04-21 10:48 | REP ---
CHEST X-RAY: Two views. HISTORY: Pneumothorax. FINDINGS: The left chest tube has been removed in the interval since the previous day's study. There is no evidence of pneumothorax on either side. Pleural angles are sharp. Heart is not enlarged. The aorta remains quite tortuous. No new infiltrate is seen. Signed by Mumtaz Loyola MD 04/21/2016 04:43 P
--- NOTE | 2016-04-21 11:45 | NOCOX ---
DATE OF PROCEDURE: 04/21/2016 Nocturnal oximetry was performed on room air. Baseline oxygen saturation was 90%. Heart rate was 76. Oxygen saturation varied the entire night with evidence of Dell-Iglesias respirations. A longest continuous time with an oxygen saturation less than 88% was 54 seconds. Total continue time with an oxygen saturation less than 88% was 14 minutes. Oxygen saturation ranged from 81% to 98%. Pulse ranged from 46 beats per minute to 108 beats per minute, correlating with a Dell-Iglesias respirations. IMPRESSION: Dell-Iglesias respirations with hypoxia. Recommend oxygen therapy.
--- NOTE | 2016-04-23 11:20 | DSES ---
DATE OF ADMISSION: 04/18/2016 DATE OF DISCHARGE: 04/21/2016 PRIMARY CARE PROVIDER: In [place] THORACIC SURGEON: Dr. Lawton NEUROLOGIST: Dr. Coates FINAL DIAGNOSES: 1. Chest pain. 2. Squamous cell lung cancer. 3. Chronic obstructive pulmonary disease (COPD). 4. Coronary arterial disease. 5. Transient ischemic attack (TIA). 6. Hypertension. 7. Atrial fibrillation. 8. Dyslipidemia. 9. Congestive heart failure (CHF). 10. Benign prostatic hypertrophy (BPH). 11. Pneumothorax. 12. Chronic kidney disease. HISTORY OF PRESENT ILLNESS: This is a 71-year-old male patient who presented to [facility] for a lung biopsy by interventional radiologist. The patient developed chest pain after the procedure and was found to have a pneumothorax. Chest tube was placed by Dr. Lawton. The patient has continued to report left-sided chest pain associated with shortness of breath and has been pleuritic in nature. A hospitalist consultation was placed. The patient was subsequently admitted to the hospital. Cardiac enzyme was sent. Telemetry was monitored. While in the process of admission, the patient developed left-handed and forearm and left shoulder weakness for a minute, subsequently resolved. The patient was unable to grab a drink with his left hand. Also, the nurses did not notice any facial asymmetry or leg weakness at the time. Entire episode lasted 1-2 minutes, and the patient has a history of atrial fibrillation, not on anticoagulation. Given questionable history of duodenitis, and aspirin has been on hold for the procedure. HOSPITAL COURSE: The patient was admitted to the hospital. Thoracic surgery, Dr. Lawton, has been consulted for management of chest tube. Telemetry, electrocardiograms (EKGs). Cardiac enzyme negative times three. V/Q scan was intermittent criteria. The patient's primary care provider was contacted. The case was discussed with neurologist. MRI was done. Carotid Doppler and MRA was also done, showing no acute stroke. V/Q scan was inconclusive. Given the patient with symptoms of transient ischemic attack (TIA), the patient will need anticoagulation for atrial fibrillation. Telemetry monitoring was observed. The risks and benefits of anticoagulation methods were discussed with the patient and family. Given the patient does not want recurrent blood draws, the patient was placed on Eliquis and will not further investigate for pulmonary embolism (PE), given history of chronic kidney disease and also the patient will be on anticoagulation for atrial fibrillation anyway. The patient's home medication was restarted. Chest tube was subsequently removed. Serial x-ray was done, and the patient cytology came back showing squamous cell carcinoma. The case was discussed with Dr. Lawton and family. The patient already has an appointment with his oncologist in the next 2 weeks, [address] Dr. Lawton will be seeing the patient in the next 7 days. Will further followup staging and treatment of the patient's condition. A nocturnal oximetry was ordered by nighttime resident, showing Dell-Iglesias breathing. The patient does have a history of CHF. Lasix has initially been on hold. Will restart Lasix for the patient and outpatient followup. The patient currently is saturating well on room air, comfortable, able to ambulate, in no acute distress. Chest tube removed by Dr. Lawton. VITAL SIGNS: Temperature 97.8, pulse 64, respiration 18, blood pressure 128/57, pulse oximetry 93% on room air. LABORATORY: WBC 6.1, hemoglobin and hematocrit 9.8 over 29.8, platelets 234. Chemistry: Sodium 140, potassium 3.9, chloride 106, bicarbonate 25, BUN 16, creatinine 1.01. DISCHARGE MEDICATIONS: - Eliquis 5 mg by mouth twice a day - aspirin 81 mg by mouth daily - senna S one tablet by mouth twice a day - Lipitor 40 mg by mouth nightly - Nexium 40 mg by mouth twice a day - Lasix 40 mg by mouth twice a day - lisinopril 10 mg by mouth daily - Percocet 10/325 mg by mouth four times a day as needed - propranolol 80 mg by mouth daily - Flomax 0.4 mg by mouth nightly DISCHARGE INSTRUCTIONS: The patient is instructed to followup with primary care provider in 7 days, oncologist in 1-2 weeks, and Dr. Lawton, thoracic surgery, in 1 week. Return to the hospital if symptoms worsen. Daily weight.
== END 2016-04-21 13:26 | disposition home or self-care (01) | DRG 200 ==
LOC: M PCU 16:06
PROVIDERS: ADMIT Thoracic Surgery (Cardiothoracic Vascular Surgery); ATTEND Hospitalist
PROC: 0W9B30Z Drainage of Left Pleural Cavity with Drainage Device, Percutaneous Approach (ICD-10-PCS; principal; 2016-04-18)
PROC: 0BBG3ZX Excision of Left Upper Lung Lobe, Percutaneous Approach, Diagnostic (ICD-10-PCS; 2016-04-18)
DX: J95.811 Postprocedural pneumothorax (principal); G45.9 Transient cerebral ischemic attack, unspecified; C34.12 Malignant neoplasm of upper lobe, left bronchus or lung; F41.9 Anxiety disorder, unspecified; I48.91 Unspecified atrial fibrillation; J44.9 Chronic obstructive pulmonary disease, unspecified; I73.9 Peripheral vascular disease, unspecified; F32.9 Major depressive disorder, single episode, unspecified; E78.5 Hyperlipidemia, unspecified; I12.9 Hypertensive chronic kidney disease with stage 1 through stage 4 chronic kidney disease, or unspecified chronic kidney disease; N18.3 Chronic kidney disease, stage 3 (moderate); H54.42 Blindness, left eye, normal vision right eye; Z95.5 Presence of coronary angioplasty implant and graft; Z88.5 Allergy status to narcotic agent; Z79.891 Long term (current) use of opiate analgesic; Z79.899 Other long term (current) drug therapy; Z87.891 Personal history of nicotine dependence; Z87.442 Personal history of urinary calculi; Y83.8 Other surgical procedures as the cause of abnormal reaction of the patient, or of later complication, without mention of misadventure at the time of the procedure

== ENCOUNTER → 2016-04-18 | Outpatient (CLI) | payer MEDICARE ==
[~2016-04-18] MED LIST: ASPI81TAEC PO; ATOR40TA PO; ELIQ5TAB PO; FLOM5CAP PO; LASI40TA PO; LIDOCAINE 1% MDV 20ML VIAL As Ordered ONE; LISI10TA4 PO; MIDAZOLAM INJ 2 MG/2 ML VIAL (J2250) As Ordered ONE; NEXI40CA PO; PERC10TA17 PO; PERCOCET 5MG/325MG TAB As Ordered ONE; PROP80CA PO; SENN1TAB2 PO
--- NOTE | 2016-04-18 12:19 | REP ---
CHEST X-RAY: PA view. HISTORY: Followup small post biopsy left-sided pneumothorax. Comparison study is from 10:02 a.m. on this same date. FINDINGS: Current radiograph demonstrates an increase in the interval in the size of the left-sided pneumothorax with pleural air tracking along the lateral aspect of the left lung and accumulating in the apex now measuring 3.2 cm in the apex. IMPRESSION: Increasing left-sided pneumothorax. Dr. Lawton has been consulted. Signed by Mumtaz Loyola MD 04/18/2016 02:01 P
[2016-04-18 13:31] LABS: ABG BASE EXCESS -0.4 (-2.0-2.0); ABG DEVICE NASAL CANN; ABG HCO3 23.4 MEQ/L (22.0-26.0); ABG PARTIAL PRESSURE CO2 35.2 mmHg (35.0-45.0); ABG PARTIAL PRESSURE O2 60.4 mmHg (75.0-100.0); ABG STANDARD HCO3 24.1 MEQ/L (22.0-26.0); ABG TOTAL CO2 24.5 MEQ/L (23.0-31.0); ABG pH (ARTERIAL) 7.441 UNITS (7.350-7.450)
--- NOTE | 2016-04-18 14:00 | REP ---
PA chest x-ray: Single view. Inspiration. History: The patient is immediately status post CT guided needle biopsy for left upper lobe lung mass. CT images taken during the biopsy showed the development of a small left-sided pneumothorax. Chest x-ray findings: There is a small left-sided pneumothorax visible at the apex of the left chest. The pleural air collection measures 2.3 cm in craniocaudal span. A follow-up chest x-ray will be obtained. Impression: Small left apical pneumothorax. Signed by Mumtaz Loyola MD 04/18/2016 01:59 P
--- NOTE | 2016-04-18 14:28 | REP ---
Status post chest tube placement. COMPARISON: 04/18/2016 at 12:00 p.m. The left-sided pneumothorax seen on the prior exam is now reduced. There is a left-sided thoracotomy tube in place, the tip of which is in the apical region. There are no other changes from the prior exam. The technique utilized in obtaining the radiograph has magnified the cardiac silhouette and accentuated the interstitial markings. Signed by Ozzy Plaza DO 04/18/2016 03:49 P
--- NOTE | 2016-04-18 16:03 | REP ---
CHEST, ONE VIEW: REASON: New onset chest pain since chest tube placement. Assess for recurrent pneumothorax. COMPARISON: Obtained today at 1:30 p.m. The technique utilized in obtaining the radiograph has magnified the cardiac silhouette and accentuated the interstitial markings. The lung huffman are unchanged. The cardiomediastinal silhouette is unchanged. The thoracotomy tube is unchanged. There is no evidence of a recurrent pneumothorax. IMPRESSION: No change from the prior exam. Signed by Ozzy Plaza DO 04/18/2016 04:19 P
--- NOTE | 2016-04-18 17:38 | REP ---
CT GUIDED LEFT UPPER LOBE LUNG BIOPSY: The procedure was performed under the direct supervision of Dr. Loyola. The patient has a history of a 2 x 1.5 cm spiculated lesion in the peripheral aspect of the left upper lobe seen on a previous CT scan from [facility] performed on 03/10/2016. The risks and benefits of the procedure were explained to the patient and informed consent was obtained. The left upper lobe lung mass was localized using CT guidance. The skin was prepped and draped in a sterile fashion. 1% lidocaine was used as a local anesthetic. Using CT guidance a 19/20-gauge coaxial needle biopsy system was inserted and advanced into the mass. Three core biopsy samples were obtained and sent to the lab. CT images performed before removing the needle demonstrate a left pneumothorax. A short tubing and 60 mL syringe was connected to the cannula and as much air as possible was aspirated from the pleural space. The cannula was removed. Followup CT images show improvement in the left pneumothorax. The patient at this time did have a pain at a level of 8 out of 10. His vital signs were otherwise stable. He was placed on 2 liters of O2 via nasal cannula. A single view PA chest x-ray performed immediately after the procedure demonstrates a small left-sided pneumothorax. Chest x-ray performed two hours later shows an increasing pneumothorax. Dr. Lawton was consulted. He came to the department and placed a chest tube in the patient. The patient was then admitted to the hospital under Dr. Lawton's care. Reviewed by DARLEEN Schwartz 04/19/2016 08:30 AEdited and Signed by Mumtaz Loyola MD 04/19/2016 02:44 P
--- NOTE | 2016-04-18 22:41 | ECGEPIP ---
Stationary ECG Study [facility] Test Date: 2016-04-18 Pat Name: GARIMA WIGGINS Department: Room: - Gender: M Salvage Determiner: JESSICA : 1945 Requested By: Jean Claude Bourgeois Order Number: [id number] Reading MD: Emiliano Barrera Measurements Intervals [place] Rate: 77 P: 38 [place]: 249 QRS: 77 QRSD: 141 T: 54 QT: 390 QTc: 444 Interpretive Statements SINUS RHYTHM WITH FIRST DEGREE AV BLOCK Borderline Prolonged QTc RIGHT BUNDLE BRANCH BLOCK Nonspecific T wave abnormality Comparison tracing not on file Electronically Signed On 04-18-2016 22:41:00 EST by Emiliano Barrera
== END | disposition home or self-care (01) ==
LOC: M RADPRO 08:31
PROVIDERS: ATTEND Internal Medicine
DX: C34.12 Malignant neoplasm of upper lobe, left bronchus or lung (principal); J95.811 Postprocedural pneumothorax; Z79.899 Other long term (current) drug therapy; Z88.5 Allergy status to narcotic agent